=== PATIENT | male | born 1945 | race Hispanic/Latino ===

== ENCOUNTER 2019-05-20 01:18 | Emergency (ER) | payer MEDICARE ==
[~2019-05-20] VITALS: Ht 175.3 cm; Wt 83.5 kg
[2019-05-20] MEDS ORDERED: DONNATAL/LIDOCAINE/MAALOX 30 ML SUSP PO STA (01:38)
--- NOTE | 2019-05-20 02:05 | Diagnostic Imaging Report ---
EXAMINATION: CXR 2 VIEW - HOPD INDICATION: ^[id number] COMPARISON: None FINDINGS: PA and lateral views TUBES and LINES: None. LUNGS: Lungs are well inflated. Mild bibasilar subsegmental atelectasis. Retrocardiac air-fluid level. PLEURA: No pleural effusion or pneumothorax. HEART AND MEDIASTINUM: The cardiomediastinal silhouette is unremarkable. BONES AND SOFT TISSUES: No acute osseous lesion. Soft tissues are unremarkable. UPPER ABDOMEN: No free air under the diaphragm. IMPRESSION: Mild bibasilar subsegmental atelectasis. Retrocardiac air-fluid level, probably a hiatal hernia. Signed by: Dr. Ahsan Garcia MD on 05/20/2019 2:02 AM
[2019-05-20] MEDS ORDERED: ALBUTEROL/IPRATROPIUM 3 ML NEB NEB STA (02:13)
[2019-05-20] MEDS ORDERED: ALBUTEROL/IPRATROPIUM 3 ML NEB ONE (02:18)
== END 2019-05-20 02:40 | disposition home or self-care (01) ==
LOC: FSED 01:18
DX: R05 Cough (principal); R11.0 Nausea; K21.9 Gastro-esophageal reflux disease without esophagitis; E78.5 Hyperlipidemia, unspecified
CPT/HCPCS: 71046; 80048; 80076; 82553; 84484; 85025; 93005; 99284

== ENCOUNTER 2021-02-26 08:14 | Emergency (ER) | payer MEDICARE, OTHER ==
[~2021-02-26] VITALS: Ht 172.7 cm; Wt 81.2 kg
[2021-02-26] MEDS ORDERED: AUGMENTIN 875-1 EACH PO (09:19)
[2021-02-26] MEDS: TETANUS/DIPHTHERIA TOX ADULT 0.5 ML SYR IM ONE (09:39)
[2021-02-26] MEDS ORDERED: TETANUS/DIPHTHERIA TOX ADULT 0.5 ML SYR ONE (09:46)
== END 2021-02-26 10:00 | disposition home or self-care (01) ==
LOC: FSED 08:18
DX: S60.371A Other superficial bite of right thumb, initial encounter (principal); W54.0XXA Bitten by dog, initial encounter; Y92.008 Other place in unspecified non-institutional (private) residence as the place of occurrence of the external cause; K21.9 Gastro-esophageal reflux disease without esophagitis; E78.5 Hyperlipidemia, unspecified
CPT/HCPCS: 90471; 90714; 99282